=== PATIENT | male | born 1945 | race American Indian/Alaskan Native ===

== ENCOUNTER 2017-08-06 18:15 | Emergency (ER) | payer MEDICARE ==
[2017-08-06] MEDS ORDERED: Sodium Chloride 0.9% 10 ML Syringe FLUSH PRN (20:23)
[2017-08-06] MEDS ORDERED: Albuterol 0.083% 2.5 MG/3 ML Neb Soln NEB ONE (20:24)
[2017-08-06] MEDS ORDERED: Furosemide 40 MG/4 ML VIAL IVPUSH ONE (20:24)
--- NOTE | 2017-08-06 21:45 | EDM.PDOC ---
ED HPI GENERAL MEDICAL PROBLEM - General Chief Complaint: Respiratory Problem Stated Complaint: SOB Time Seen by Provider: 08/06/17 18:55 Source of Information: Reports: Patient, Family History Limitations: Reports: No Limitations - History of Present Illness INITIAL COMMENTS - FREE TEXT/NARRATIVE: pt arrived with marked sob. He has not been able to sleep well at nite. Onset: Gradual Duration: Day(s):, Getting Worse Location: Reports: Chest, Other ( swelling is present in both legs. ) Associated Symptoms: Reports: Cough, Shortness of Breath, Other (Pt had several teeth extracted about 3 weeks ago and he has not felt right since that time. ) - Related Data Allergies Allergy/AdvReac Type Severity Reaction Status Date / Time Penicillins Allergy Hives Verified 08/06/17 19:16 Home Meds: Home Meds Insulin Detemir [Levemir] 20 unit SUBCUT DAILY 08/06/17 [History] metFORMIN [Glucophage] 500 mg PO BIDMEALS 08/06/17 [History] Past Medical History Neurological History: Reports: Head Trauma Endocrine/Metabolic History: Reports: Diabetes, Type II - Infectious Disease History Infectious Disease History: Reports: Chicken Pox, Measles - Past Surgical History HEENT Surgical History: Reports: Other (See Below) Other HEENT Surgeries/Procedures: Recent 8 tooth extraction Social & Family History - Tobacco Use Smoking Status *Q: Unknown Ever Smoked Second Hand Smoke Exposure: No - Caffeine Use Caffeine Use: Reports: Coffee - Recreational Drug Use Recreational Drug Use: No ED ROS GENERAL - Review of Systems Review Of Systems: See Below Constitutional: Reports: No Symptoms HEENT: Reports: No Symptoms Respiratory: Reports: Shortness of Breath, Cough, Other (pt has not been able to rest for the past week because he is so short of breath ) Cardiovascular: Reports: Dyspnea on Exertion, Edema, Orthopnea, Other (pt has not been able to rest because he is so sob. ) Endocrine: Reports: No Symptoms GI/Abdominal: Reports: No Symptoms : Reports: No Symptoms Musculoskeletal: Reports: Hand Pain Skin: Reports: No Symptoms Neurological: Reports: No Symptoms ED EXAM, GENERAL - Physical Exam Exam: See Below Free Text/Narrative:: pt arrived with sob and difficulty resting. he has noted alot of swelling in both legs. He states he had his teeth extracted 3 weeks ago and he has been sob since that time. Exam Limited By: No Limitations General Appearance: Alert, Anxious, Moderate Distress, Other (pt has been struggling at home with his breathing but has refused to come in. ) Ears: Normal TMs Nose: Normal Inspection Throat/Mouth: Normal Inspection Head: Atraumatic Neck: Normal Inspection Respiratory/Chest: Decreased Breath Sounds, Crackles, Rales, Wheezing Cardiovascular: Regular Rate, Rhythm, Tachycardia GI/Abdominal: Soft, Non-Tender (Male) Exam: Deferred Rectal (Males) Exam: Deferred Extremities: Other (both legs have plus 3 pitting edema. ) Neurological: Alert, Oriented, Normal Cognition Course - Vital Signs Last Recorded V/S: Last Vital Signs Temp 35.7 C 08/06/17 22:55 Pulse 89 08/06/17 22:55 Resp 16 08/06/17 22:55 BP 137/90 08/06/17 22:55 Pulse Ox 96 08/06/17 22:55 - Orders/Labs/Meds Orders: Active Orders 24 hr Category Date Time Status EKG Documentation Completion [RC] ASDIRECTED Care 08/06/17 20:56 Active RT Aerosol Therapy [RC] ASDIRECTED Care 08/06/17 20:24 Active Ang Chest [CT] Stat Exams 08/06/17 22:55 Taken Chest 2V [CR] Stat Exams 08/06/17 19:36 Taken Sodium Chloride 0.9% [Normal Saline] 1,000 ml Med 08/06/17 23:00 Active IV ASDIRECTED Sodium Chloride 0.9% [Saline Flush] Med 08/06/17 20:23 Active 10 ml FLUSH ASDIRECTED PRN Saline Lock Insert [OM.PC] Routine Oth 08/06/17 20:23 Ordered EKG 12 Lead [EK] Routine Ther 08/06/17 20:56 Ordered Medication Orders Sodium Chloride (Normal Saline) 1,000 mls @ 150 mls/hr IV ASDIRECTED PENNY Last Admin: 08/06/17 23:25 Dose: 150 mls/hr Sodium Chloride (Saline Flush) 10 ml FLUSH ASDIRECTED PRN PRN Reason: Keep Vein Open Last Admin: 08/06/17 20:47 Dose: 10 ml Labs: Laboratory Tests 08/06/17 08/06/17 08/06/17 Range/Units 19:47 19:47 21:24 WBC 8.9 (4.5-11.0) K/uL RBC 3.98 L (4.30-5.90) M/uL Hgb 11.7 L (12.0-15.0) g/dL Hct 37.0 L (40.0-54.0) % MCV 93 (80-98) fL MCH 29 (27-31) pg MCHC 32 (32-36) % Plt Count 280 (150-400) K/uL Neut % (Auto) 58 (36-66) % Lymph % (Auto) 29 (24-44) % [place] % (Auto) 9 H (2-6) % Eos % (Auto) 4 (2-4) % Baso % (Auto) 0 (0-1) % D-Dimer, Quantitative (0.0-400.0) ng/mL Sodium 144 (140-148) mmol/L Potassium 4.1 (3.6-5.2) mmol/L Chloride 109 H (100-108) mmol/L Carbon Dioxide 25 (21-32) mmol/L Anion Gap 14.1 H (5.0-14.0) mmol/L BUN 19 H (7-18) mg/dL Creatinine 1.0 (0.8-1.3) mg/dL Est Cr Clr Drug Dosing 72.16 mL/min Estimated GFR (MDRD) > 60 (>60) Glucose 119 H (74-106) mg/dL Calcium 8.3 L (8.5-10.1) mg/dL Total Bilirubin 0.6 (0.2-1.0) mg/dL AST 65 H (15-37) U/L ALT 115 H (12-78) U/L Alkaline Phosphatase 91 (46-116) U/L Troponin I (0.000-0.056) ng/mL NT-Pro-B Natriuret Pep 4115 H (5-125) pg/mL Total Protein 6.0 L (6.4-8.2) g/dL Albumin 3.2 L (3.4-5.0) g/dL Globulin 2.8 (2.3-3.5) g/dL Albumin/Globulin Ratio 1.1 L (1.2-2.2) Urine Color Yellow Urine Appearance Clear Urine pH 6.0 (4.5-8.0) Ur Specific [place] 1.015 (1.008-1.030) Urine Protein Negative (NEGATIVE) mg/dL Urine Glucose (UA) Normal (NEGATIVE) mg/dL Urine Ketones Negative (NEGATIVE) mg/dL Urine Occult Blood Negative (NEGATIVE) Urine Nitrite Negative (NEGAITVE) Urine Bilirubin Negative (NEGATIVE) Urine Urobilinogen Normal (NORMAL) mg/dL Ur Leukocyte Esterase Negative (NEGATIVE) Urine RBC 0-5 (0-5) Urine WBC Not seen (0-5) Ur Epithelial Cells Rare Amorphous Sediment Not seen Urine Bacteria Few Urine Mucus Few 08/06/17 08/06/17 08/06/17 Range/Units 21:43 22:15 23:54 WBC (4.5-11.0) K/uL RBC (4.30-5.90) M/uL Hgb (12.0-15.0) g/dL Hct (40.0-54.0) % MCV (80-98) fL MCH (27-31) pg MCHC (32-36) % Plt Count (150-400) K/uL Neut % (Auto) (36-66) % Lymph % (Auto) (24-44) % [place] % (Auto) (2-6) % Eos % (Auto) (2-4) % Baso % (Auto) (0-1) % D-Dimer, Quantitative 822 H (0.0-400.0) ng/mL Sodium (140-148) mmol/L Potassium 3.5 L (3.6-5.2) mmol/L Chloride (100-108) mmol/L Carbon Dioxide (21-32) mmol/L Anion Gap (5.0-14.0) mmol/L BUN (7-18) mg/dL Creatinine (0.8-1.3) mg/dL Est Cr Clr Drug Dosing mL/min Estimated GFR (MDRD) (>60) Glucose (74-106) mg/dL Calcium (8.5-10.1) mg/dL Total Bilirubin (0.2-1.0) mg/dL AST (15-37) U/L ALT (12-78) U/L Alkaline Phosphatase (46-116) U/L Troponin I 0.040 (0.000-0.056) ng/mL NT-Pro-B Natriuret Pep (5-125) pg/mL Total Protein (6.4-8.2) g/dL Albumin (3.4-5.0) g/dL Globulin (2.3-3.5) g/dL Albumin/Globulin Ratio (1.2-2.2) Urine Color Urine Appearance Urine pH (4.5-8.0) Ur Specific [place] (1.008-1.030) Urine Protein (NEGATIVE) mg/dL Urine Glucose (UA) (NEGATIVE) mg/dL Urine Ketones (NEGATIVE) mg/dL Urine Occult Blood (NEGATIVE) Urine Nitrite (NEGAITVE) Urine Bilirubin (NEGATIVE) Urine Urobilinogen (NORMAL) mg/dL Ur Leukocyte Esterase (NEGATIVE) Urine RBC (0-5) Urine WBC (0-5) Ur Epithelial Cells Amorphous Sediment Urine Bacteria Urine Mucus Meds: Medications Generic Name Dose Route Start Last Admin Trade Name Freq PRN Reason Stop Dose Admin Sodium Chloride 1,000 mls @ 150 mls/hr 08/06/17 23:00 08/06/17 23:25 Normal Saline IV 150 mls/hr ASDIRECTED PENNY Administration Sodium Chloride 10 ml 08/06/17 20:23 08/06/17 20:47 Saline Flush FLUSH 10 ml ASDIRECTED PRN Administration Keep Vein Open Discontinued Medications Generic Name Dose Route Start Last Admin Trade Name Freq PRN Reason Stop Dose Admin Albuterol 2.5 mg 08/06/17 20:24 08/06/17 20:42 Proventil Neb Soln NEB 08/06/17 20:25 2.5 mg ONETIME ONE Administration Furosemide 60 mg 08/06/17 20:24 08/06/17 20:48 Lasix IVPUSH 08/06/17 20:25 60 mg ONETIME ONE Administration Sodium Chloride 100 mls @ 4 mls/sec 08/06/17 23:05 08/06/17 23:15 Normal Saline IV 08/06/17 23:06 4 mls/sec ASDIRECTED STA Administration Iopamidol 100 ml 08/06/17 23:05 08/06/17 23:15 Isovue-370 (76%) IV 08/06/17 23:06 100 ml . DIRECTED STA Administration - Re-Assessments/Exams Free Text/Narrative Re-Assessment/Exam: 08/07/17 00:34 pt was given 60mg of lasix and he has put out 1500cc of fluid. He is breathing better. his trop is .040. His chest xray reveals bilateral pleural effusions. His Ddimer was up and he had a cat scan of his chest which revealed pulmonary edema and effusions. There may be a inflamitoory element. His bnp is over 4000. . Departure - Departure Time of Disposition: 00:36 Disposition: Home, Self-Care 01 Condition: Fair Clinical Impression: Pulmonary edema, Pleural effusion - Discharge Information Referrals: PCP,None [Primary Care Provider] - Forms: ED Department Discharge Care Plan Goals: transfer to [facility] - My Orders Last 24 Hours: My Active Orders 08/06/17 19:36 Chest 2V [CR] Stat 08/06/17 20:23 Sodium Chloride 0.9% [Saline Flush] 10 ml FLUSH ASDIRECTED PRN Saline Lock Insert [OM.PC] Routine 08/06/17 20:24 RT Aerosol Therapy [RC] ASDIRECTED 08/06/17 20:56 EKG Documentation Completion [RC] ASDIRECTED EKG 12 Lead [EK] Routine 08/06/17 22:55 Ang Chest [CT] Stat 08/06/17 23:00 Sodium Chloride 0.9% [Normal Saline] 1,000 ml IV ASDIRECTED - Assessment/Plan Last 24 Hours: My Active Orders 08/06/17 19:36 Chest 2V [CR] Stat 08/06/17 20:23 Sodium Chloride 0.9% [Saline Flush] 10 ml FLUSH ASDIRECTED PRN Saline Lock Insert [OM.PC] Routine 08/06/17 20:24 RT Aerosol Therapy [RC] ASDIRECTED 08/06/17 20:56 EKG Documentation Completion [RC] ASDIRECTED EKG 12 Lead [EK] Routine 08/06/17 22:55 Ang Chest [CT] Stat 08/06/17 23:00 Sodium Chloride 0.9% [Normal Saline] 1,000 ml IV ASDIRECTED
[2017-08-06] MEDS ORDERED: Sodium Chloride 0.9% 1,000 ML IV SCH (23:00)
[2017-08-06] MEDS ORDERED: Iopamidol 755 Mg/ML 100 ML Bottle IV STA (23:05)
[2017-08-06] MEDS ORDERED: Sodium Chloride 0.9% 100 ML IV STA (23:05)
--- NOTE | 2017-08-07 09:12 | CR ---
Chest 2V INDICATION: sob COMPARISON: None FINDINGS: Two views. Cardiomegaly. Bilateral pleural effusions, right greater than left. Vascular congestion. IMPRESSION: Findings suggestive of CHF.
== END 2017-08-07 01:20 ==
LOC: JP.ED 18:15
DX: J90 Pleural effusion, not elsewhere classified (principal); J81.1 Chronic pulmonary edema; E11.9 Type 2 diabetes mellitus without complications; Z88.0 Allergy status to penicillin; Z79.4 Long term (current) use of insulin
CPT/HCPCS: 36415; 71046; 71275; 80053; 81001; 83880; 84132; 84484; 85025; 85379; 93005; 96361; 96374; 99285; J1940; J7030; J7040; J7050; Q9967; 93010; 99284